=== PATIENT | female | born 1940 ===

== ENCOUNTER 2018-09-22 17:00 | Inpatient (IN) | payer OTHER ==
[2018-09-22] MEDS ORDERED: IOHEXOL 300 mgI/ML (OMNIPAQUE) 150 ML BTL IV ONE (17:43)
[2018-09-22] MEDS ORDERED: ONDANSETRON DISINTEGRATING 4 MG TAB PO PRN (17:54)
[2018-09-22] MEDS ORDERED: ACETAMINOPHEN 325 MG TAB PO PRN (17:54)
[2018-09-22] MEDS ORDERED: ONDANSETRON 4 MG/2 ML VIAL IVP PRN (17:54)
--- NOTE | 2018-09-22 18:34 | PDGENHP ---
Addendum entered and electronically signed by Brenda Adam NP 09/22/18 19:52 : I spoke with MICHAEL Jacobson for Dr. Doty re: face CT results. He and Dr. Doty were planning on evaluating the pt tomorrow anyway and review the results of the face CT however he was appreciative of the phone call tonight. Original Note: <Brenda Adam - Last Filed: 09/22/18 19:39> History and Physical - Chief Complaint Right periorbital cellulitis - History of Present Illness HPI: 78 y/o female with history of breast cancer and currently on chemotherapy presenting as a direct admit from her ENT, Dr. Doty's, office with right sided periorbital cellulitis. Beginning in December 2017, she had a sinus CT with opacification of the right maxillary sinus and right ethmoid - she was treated with 30 days of clindamycin to which there was an improvement and her dentist felt her dental evaluation a few months afterwards was negative. Repeat imaging June 2018 revealed opacification of the right maxillary sinus and the right ethmoids persisted. August 2018, she went to the OR and had a right-sided anterior and posterior ethmoidectomy and middle meatal antrostomy. Pathology showed acute and chronic inflammation. She was started on doxycycline and gentamicin rinses. A week after, she presented to the office with continuation of her purulent right ostiomeatal complex. She continued her gentamicin rinses and added in budesonide rinses. Last week, the complex was cultured and it showed streptococcus intermedius and was started on cefdinir last Saturday. Since then, she developed swelling around her right eye. Today in the ENT office, they performed a nasal endoscopy with purulence coming from the complex. This is my first encounter with the pt who is pleasant, cooperative and in no apparent distress. She denies any vision changes or loss of acuity, endorses a mild headache and inability to widen her right eye. Pain is 2-3/10. Pupils constrict to light appropriately, moderate edema and erythema surrounding eye with edema to upper and lower eyelid. Endorses tasting a "nasty taste" in her mouth from the drainage. Denies chest pains, palpitations, shortness of breath , fevers, or chills. She is being admitted for IV antibiotics and monitoring. Past Medical History 1. Breast cancer (1985, 2001) 2. 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 Hyperlipidemia 4. Hypertension Past Surgical History 1. Double mastectomy Social 1. , lives in [place] 2. Denies tobacco or illicit drug use. Drinks one glass of wine every day. History Information - Allergies/Home Medication List Allergies/Adverse Reactions: Sulfa (Sulfonamide Antibiotics) Allergy (Verified 09/22/18 17:12) I have personally reviewed and updated: family history, medical history, social history, surgical history Past Medical History: See HPI list - Surgical History Additional surgical history: See HPI list - Family History Positive for: non-pertinent - Social History Smoking Status: Never smoked Alcohol Use: Occasionally Drug Use: None Review of Systems Review of Systems: ROS: 10pt was reviewed & negative except for what was stated in HPI & below Physical Exam Physical Exam: Today's lab data is pending. Case discussed with admitting physician, Dr. Natalio Bar. Temp Pulse Resp BP Pulse Ox 36.7 C 95 16 133/83 H 94 09/22/18 17:42 09/22/18 17:42 09/22/18 17:42 09/22/18 17:42 09/22/18 17:42 Constitutional: no apparent distress, appears nourished, not in pain Eyes: PERRL, anicteric sclera, EOMI, other (see HPI) Ears, Nose, Mouth, Throat: moist mucous membranes, hearing normal, ears appear normal, no oral mucosal ulcers Cardiovascular: regular rate and rhythym, no murmur, rub, or gallop, No edema Peripheral Pulses: 2+: dorsalis-pedis (R) (Radial 2+), dorsalis-pedis (L) ( Radial 2+) Respiratory: no respiratory distress, no rales or rhonchi, clear to auscultation Gastrointestinal: normoactive bowel sounds, soft, non-tender abdomen, no palpable masses Genitourinary: no bladder fullness, no bladder tenderness Skin: warm, normal color, no rashes or abrasions, no fluctuance, no induration, No mottled Musculoskeletal: full muscle strength, no muscle tenderness, normal joint ROM, no joint effusions Neurologic: AAOx3, sensation intact bilaterally, CN II-XII Intact Psychiatric: interacting appropriately, not anxious, not encephalopathic, thought process linear Lymph, Heme, Immunologic: no cervical LAD, no supraclavicular LAD Lab Data & Imaging Review 09/22/18 19:00 09/22/18 19:00 Assessment & Plan Plan: 78 y/o female with history of metastatic breast cancer presenting with right- sided periorbital cellulitis, an approximately 9 month worth of progression to this stage. 1. Periorbital cellulitis: Dr. Av Doty, ENT requested admittance to hospital to receive IV abx. Face CT show no bony erosion to right maxillary, ethmoid and front sinus. It does reveal focal erosion surrounding anchor from right alveolar ridge dental implant with focal disruption of the floor of the right maxillary sinus which could contribute to the sinus disease. -ID consulted and aware. I spoke to Dr. Barboza who recommended pt receive Vancomycin and Zosyn. ID will evaluate pt in AM. -Oral surgery consult. I left a message for Dr. Ariana Ruby to consult while pt is in hospital. I am waiting for a response. -Cold compress -Pain management PO medications PRN 2. Headache: see above. 3. Metastatic breast cancer: Currently is on chemotherapy. Utilizes 2 medications - Ibrance, letrozole. She is on the 3rd day of the 21 day medication use. will bring in these medications from home for her to continue to take while in the hospital. 4. HTN 5. HLD 6. Anemia of chronic disease 7. Mnire's Disease Diet: Regular VTE ppx: SCDs, Lovenox subq Code: Full Dispo: Admit to inpatient <Natalio Bar - Last Filed: 09/22/18 22:16> History and Physical - History of Present Illness Review of Systems Review of Systems: Physical Exam Physical Exam: Temp Pulse Resp BP Pulse Ox 36.6 C 78 18 124/69 H 95 09/22/18 20:00 09/22/18 20:00 09/22/18 20:00 09/22/18 20:00 09/22/18 20:00 Lab Data & Imaging Review 09/22/18 19:00 09/22/18 19:00 WBC 5.21 10^3/uL (3.80-9.50) 09/22/18 19:00 RBC 3.33 10^6/uL (4.18-5.33) L 09/22/18 19:00 Hgb 12.4 g/dL (12.6-16.3) L 09/22/18 19:00 Hct 36.6 % (38.0-47.0) L 09/22/18 19:00 MCV 109.9 fL (81.5-99.8) H 09/22/18 19:00 MCH 37.2 pg (27.9-34.1) H 09/22/18 19:00 MCHC 33.9 g/dL (32.4-36.7) 09/22/18 19:00 RDW 14.6 % (11.5-15.2) 09/22/18 19:00 Plt Count 194 10^3/uL (150-400) 09/22/18 19:00 MPV 9.3 fL (8.7-11.7) 09/22/18 19:00 Neut % (Auto) 47.9 % (39.3-74.2) 09/22/18 19:00 Lymph % (Auto) 40.7 % (15.0-45.0) 09/22/18 19:00 [place] % (Auto) 9.8 % (4.5-13.0) 09/22/18 19:00 Eos % (Auto) 0.8 % (0.6-7.6) 09/22/18 19:00 Baso % (Auto) 0.4 % (0.3-1.7) 09/22/18 19:00 Nucleat RBC Rel Count 0.0 % (0.0-0.2) 09/22/18 19:00 Absolute Neuts (auto) 2.50 10^3/uL (1.70-6.50) 09/22/18 19:00 Absolute Lymphs (auto) 2.12 10^3/uL (1.00-3.00) 09/22/18 19:00 Absolute Monos (auto) 0.51 10^3/uL (0.30-0.80) 09/22/18 19:00 Absolute Eos (auto) 0.04 10^3/uL (0.03-0.40) 09/22/18 19:00 Absolute Basos (auto) 0.02 10^3/uL (0.02-0.10) 09/22/18 19:00 Absolute Nucleated RBC 0.00 10^3/uL (0-0.01) 09/22/18 19:00 Immature Gran % 0.4 % (0.0-1.1) 09/22/18 19:00 Immature Gran # 0.02 10^3/uL (0.00-0.10) 09/22/18 19:00 PT 12.9 SEC (12.0-15.0) 09/22/18 19:00 INR 0.95 (0.83-1.16) 09/22/18 19:00 Sodium 138 mEq/L (135-145) 09/22/18 19:00 Potassium 3.9 mEq/L (3.5-5.2) 09/22/18 19:00 Chloride 107 mEq/L (97-110) 09/22/18 19:00 Carbon Dioxide 24 mEq/l (22-31) 09/22/18 19:00 Anion Gap 7 mEq/L (6-14) 09/22/18 19:00 BUN 19 mg/dL (7-23) 09/22/18 19:00 Creatinine 0.8 mg/dL (0.6-1.0) 09/22/18 19:00 Estimated GFR > 60 09/22/18 19:00 Glucose 99 mg/dL (70-100) 09/22/18 19:00 Calcium 8.9 mg/dL (8.5-10.4) 09/22/18 19:00 Total Bilirubin 0.3 mg/dL (0.1-1.4) 09/22/18 19:00 AST 36 IU/L (14-46) 09/22/18 19:00 ALT 31 IU/L (9-52) 09/22/18 19:00 Alkaline Phosphatase 132 IU/L (38-126) H 09/22/18 19:00 Total Protein 7.1 g/dL (6.3-8.2) 09/22/18 19:00 Albumin 3.8 g/dL (3.5-5.0) 09/22/18 19:00 Assessment & Plan Assessment: Orbital cellulitis (Acute) Plan: Patient seen and evaluated independently and plan reviewed with LUCIE Adam. Agree with her assessment and plan as outlined above. See separate documentation for further details.
[2018-09-22 19:15] LABS: PLATELET COUNT 194 10^3/uL (150-400)
--- NOTE | 2018-09-22 19:32 | PDMN ---
Medical Necessity Medical necessity: [facility] M70 Cellulitis: 78 yo w/ periorbital cellulitis in setting of breast ca currently on chemo, direct admit for IV antibx. ID and oral surgery consulted. Meets [facility] IP criteria for cellulitis w/ orbital infection w/ high risk comorbid condition.
[2018-09-22 19:33] LABS: INR 0.95 (0.83-1.16); PROTIME(PATIENT) 12.9 SEC (12.0-15.0)
[2018-09-22] MEDS: PIPERACILLIN/TAZO 4.5 GM/DEX 100 ML IV SCH (20:16)
[2018-09-22] MEDS: VANCOMYCIN 750 MG in D5W 150 ML IV SCH (22:16)
--- NOTE | 2018-09-22 22:21 | HOSPPROG ---
Hospitalist Progress Note Assessment/Plan: 78 y/o female with history of metastatic breast cancer presenting with right- sided periorbital cellulitis # periorbital cellulitis: patient sent as a direct admit from ENT, reviewed care plan with them. Patient with hx of breast cancer and immune suppression and high risk for orbital involvement, facial CT without e/o bony erosion or orbital involvement. Reviewed care plan with ID, patient started on vanc/zosyn per their recommendations. ENT to follow # sinus disease: chronic sinus infection and evidence of erosion from dental implant to floor of maxillary sinus, [facility] surgery has been consulted and plans to evaluate patient in am # metastatic breast cancer: currently on ibrance and letrozole # chronic issues: HTN, HLD, anemia # IP status Patient new to my care. Old records reviewed and summarized as above. Care plan reviewed with ENT and ID as well as LUCIE Adam, please see her H&P for further details. Objective: Vital Signs Temp Pulse Resp BP Pulse Ox 36.6 C 78 18 124/69 H 95 09/22/18 20:00 09/22/18 20:00 09/22/18 20:00 09/22/18 20:00 09/22/18 20:00 Laboratory Results 09/22/18 19:00 09/22/18 19:00 PT 12.9 SEC (12.0-15.0) 09/22/18 19:00 INR 0.95 (0.83-1.16) 09/22/18 19:00 ICD10 Worksheet Patient Problems: Problems Problem Status Onset Orbital cellulitis Acute
[2018-09-23] MEDS: PIPERACILLIN/TAZO 4.5 GM/DEX 100 ML IV SCH ×3 (02:14→13:05)
[2018-09-23 05:26] LABS: PLATELET COUNT 157 10^3/uL (150-400)
--- NOTE | 2018-09-23 08:25 | SOAPPROG ---
SOAP Progress Note Assessment/Plan: Assessment: Right periorbital cellulitis and sinusitis. Pt with improved right eye swelling and discomfort. Vision improved. EOM intact Pt with likely dental implant source to her ongoing sinusitis. Plan: ID to see pt today. Page has been put out to Oral surgeon, waiting to hear back. Pt will need to see oral surgery for evaluation of her right upper dental implant, as this is possibly the source to her sinus infection. Will start Afrin nasal spray in right nares today to keep antrostomy as open and draining as possible. Discussed this plan with pt and answered questions 09/23/18 08:20 09/23/18 08:27 Subjective: Pt reports improved eye symptoms. Less swelling and discomfort. Objective: Vital Signs Temp Pulse Resp BP Pulse Ox 36.6 C 74 18 133/72 H 94 09/23/18 07:50 09/23/18 07:50 09/23/18 07:50 09/23/18 07:50 09/23/18 07:50 Laboratory Results 09/23/18 05:11 09/23/18 05:11 09/22/18 09/23/18 09/24/18 05:59 05:59 05:59 Intake Total 600 Output Total 300 Balance 300 PT 12.9 SEC (12.0-15.0) 09/22/18 19:00 INR 0.95 (0.83-1.16) 09/22/18 19:00 Pt sitting in bed and eating breakfast comfortably. Decreased swelling and erythema to right eye. EOMs are intact. - Pending Discharge Pending Discharge Within 24 Hours: No Pending Discharge Within 48 Hours: Yes Pending Discharge Date: 09/25/18 Pending Discharge Time: 11:00 ICD10 Worksheet Patient Problems: Problems Problem Status Onset Orbital cellulitis Acute
[2018-09-23] MEDS ORDERED: OXYMETAZOLINE 30 ML NASAL SPRAY NS SCH (09:00)
[2018-09-23] MEDS ORDERED: OXYMETAZOLINE 30 ML NASAL SPRAY EACHNARE SCH (09:00)
[2018-09-23] MEDS ORDERED: ENOXAPARIN 40 MG/0.4 ML SYR SC SCH (09:00)
[2018-09-23] MEDS: VANCOMYCIN 750 MG in D5W 150 ML IV SCH (09:25)
--- NOTE | 2018-09-23 09:36 | PDCONSULT ---
Supervisor [employer] Note: OMFS Consultation: HPI: 78 yo female with metastatic breast cancer reports to [facility] regarding right periorbital cellulitis. Reports having tooth problems upper right for some time and seeing the dentist recently without treatment due to treatment of Xgeva. Patient understanding that tooth likely needs removal. Reported right midface swelling starting yesterday and being unable to open right eye. MD Edgar Balderas, [place] - Rx Xgeva - qmonthly infusion - Scheduled Oct 01 for next infusion. Medical clearance will be sent to Dr Ramsey regarding holding Xgeva until late October 2018.
--- NOTE | 2018-09-23 09:38 | PDCONSULT ---
School Transportation Director Note: OMFS Consultation: HPI: 78 yo female with metastatic breast cancer reports to [facility] regarding right periorbital cellulitis. Reports having tooth problems upper right for some time and seeing the dentist recently without treatment due to treatment of Xgeva. Patient understanding that tooth likely needs removal. Reported right midface swelling starting yesterday and being unable to open right eye. Edema of right face decreased since yesterday per patient. MD Edgar Balderas, [place] - Rx Xgeva - qmonthly infusion - Scheduled Oct 01 for next infusion. Medical clearance will be sent to Dr Ramsey regarding holding Xgeva until late October 2018. Labs: Laboratory Results 09/23/18 05:11 09/23/18 05:11 09/23/18 09/23/18 05:11 05:11 WBC 3.25 10^3/uL L 10^3/uL (3.80-9.50) RBC 2.81 10^6/uL L 10^6/uL (4.18-5.33) Hgb 10.2 g/dL L g/dL (12.6-16.3) Hct 30.3 % L % (38.0-47.0) MCV 107.8 fL H fL (81.5-99.8) MCH 36.3 pg H pg (27.9-34.1) MCHC 33.7 g/dL g/dL (32.4-36.7) RDW 14.7 % % (11.5-15.2) Plt Count 157 10^3/uL 10^3/uL (150-400) MPV 9.4 fL fL (8.7-11.7) Neut % (Auto) 29.6 % L % (39.3-74.2) Lymph % (Auto) 55.4 % H % (15.0-45.0) [place] % (Auto) 12.0 % % (4.5-13.0) Eos % (Auto) 1.8 % % (0.6-7.6) Baso % (Auto) 0.9 % % (0.3-1.7) Nucleat RBC Rel Count 0.0 % % (0.0-0.2) Absolute Neuts (auto) 0.96 10^3/uL L 10^3/uL (1.70-6.50) Absolute Lymphs (auto) 1.80 10^3/uL 10^3/uL (1.00-3.00) Absolute Monos (auto) 0.39 10^3/uL 10^3/uL (0.30-0.80) Absolute Eos (auto) 0.06 10^3/uL 10^3/uL (0.03-0.40) Absolute Basos (auto) 0.03 10^3/uL 10^3/uL (0.02-0.10) Absolute Nucleated RBC 0.00 10^3/uL 10^3/uL (0-0.01) Immature Gran % 0.3 % % (0.0-1.1) Immature Gran # 0.01 10^3/uL 10^3/uL (0.00-0.10) RBC/WBC/PLT Morphology TNP Platelet Estimate TNP Sodium 138 mEq/L mEq/L (135-145) Potassium 3.8 mEq/L mEq/L (3.5-5.2) Chloride 110 mEq/L mEq/L (97-110) Carbon Dioxide 23 mEq/l mEq/l (22-31) Anion Gap 5 mEq/L L mEq/L (6-14) BUN 13 mg/dL mg/dL (7-23) Creatinine 0.8 mg/dL mg/dL (0.6-1.0) Estimated GFR > 60 Glucose 92 mg/dL mg/dL (70-100) Calcium 8.3 mg/dL L mg/dL (8.5-10.4) Total Bilirubin 0.5 mg/dL mg/dL (0.1-1.4) AST 23 IU/L IU/L (14-46) ALT 23 IU/L IU/L (9-52) Alkaline Phosphatase 92 IU/L IU/L (38-126) Total Protein 5.8 g/dL L g/dL (6.3-8.2) Albumin 2.9 g/dL L g/dL (3.5-5.0) Medical History 1. Metastatic breast cancer 2. HLD 3. HTN Allergies: Allergy/AdvReac Type Severity Reaction Status Date / Time Sulfa (Sulfonamide Allergy Intermediate Itching Verified 09/22/18 22:59 Antibiotics) Examination: General: AAOx3, pleasant, cooperative Head: Right midfacial edema with mild right periorbital edema w/o tenderness to palpation. Oral: #3 edema of buccal vestibule with tenderness. Missing dentition upper left. Fair [place]. CT Face: #3 with abscess palatal root and fluid level of right maxillary sinus, no direct communication between apices and sinus. Right midfacial edema. A: Acute abscess tooth #3, fractured, non-restorable with right buccal space abscess P: Patient to follow up at [facility] this week for extraction tooth #3. Recommend PO antibiotics Augmentin DS x10 days. Will contact Dr Ramsey regarding infusion hold. Ariana Ruby DDS sound system installer [phone]
--- NOTE | 2018-09-23 11:55 | ASMTCASEMG ---
Living Arrangements What is your living Answers: With Spouse arrangement? Who do you live with? Type Of Residence What kind of residence do Answers: House you live in? Discharge Plan Comments Coordination Status Comments Notes: Patient is a 78yo female with hx of breast cancer and currently on chemotherapy who is being admitted for right sided periorbital cellulitis and IV ABX. No therapies ordered at this time. D/C plan TBD. CM will follow. Date Signed: 09/23/2018 11:54 AM Electronically Signed By:Hawa Merchant LCSW
--- NOTE | 2018-09-23 12:03 | GCON ---
[f rep st] CONSULTATION INFECTIOUS DISEASE CONSULTATION DATE OF CONSULTATION: 09/23/2018 REFERRING PHYSICIAN: Natalio Bar MD REASON FOR CONSULTATION: Periorbital cellulitis. HISTORY OF PRESENT ILLNESS: Patient is a 78-year-old female with a past medical history of metastati c breast cancer on chronic therapy with Ibrance, whom I am asked to see in consultation for right-franco ed periorbital cellulitis in conjunction with sinusitis. Patient first developed problems in December of last year with right-sided maxillary and ethmoid sinusitis. This was associated with some periapical lucency of a maxillary tooth on the right side. Purulent drainage was noted from the ostiomeatal co mplex at that time, and she was treated with 30 days of clindamycin with good clinical response. Sub sequent exams revealed clearing of purulent drainage. Dental evaluation was performed with opinion t hat tooth did not require extraction. In April, patient had upper respiratory tract infection tr eated with azithromycin, and ENT evaluation at that time was negative for ongoing sinus drainage. In June, patient had repeat CT scan of the sinuses, which showed persistent opacification of the ri ght maxillary and ethmoid sinus. Ultimately, in August, she was taken to the operating room where s he had a right-sided anterior and posterior ethmoidectomy as well as maxillary sinus surgery. Purule nce with thick mucoid change was noted. The patient had cultures obtained at that point in time, whi ch showed prevotella, Staphylococcus epidermidis, eikenella, and viridans Streptococcus group. Susce ptibility profile of the Staphylococcus epidermidis is reviewed. She was subsequently treated with d oxycycline, budesonide rinse, and gentamicin rinse for approximately 1 month in total. More recently , purulent drainage was cultured, which showed growth of Streptococcus intermedius. She was treated with cefdinir for this finding. Last Saturday, the patient notes new onset of right-sided eye swelling with erythema, warmth, and tenderness overlying the skin. She does not have any yuli eye tendernes s. There was no associated fever or chills. She is currently taking her Ibrance. She does not reca ll any episodes of neutropenia associated with this medication previously. She was seen by ENT yeste rday and admitted for periorbital cellulitis. CT scan was performed, which showed findings compatibl e with periorbital cellulitis including complete opacification of the right maxillary and ethmoid sin uses. There were no erosive changes noted. Nasal endoscopy yesterday did not show any changes to meyer ggest mucormycosis. There was concern about focal erosion around a dental implant along the right al veolar ridge adjacent to the maxillary sinus. The patient was started empirically on vancomycin and Zosyn and notes significant decrease in symptoms today. She is able to open her eye without difficul ty and notes redness has largely resolved. She has not experienced nausea, vomiting, or diarrhea. G iven the above findings, infectious disease consultation is now requested for assistance in her ongoi ng management. PAST MEDICAL HISTORY: Metastatic breast cancer, chronic sinusitis as outlined above, neuropathy asso ciated with chemotherapy. PAST SURGICAL HISTORY: Bilateral mastectomy, sinus surgery as outlined above. CURRENT MEDICATIONS: Vancomycin 750 mg IV q.12 hours, Zosyn 4.5 g IV q.6 hours, Afrin nasal spray b. i.d., Lovenox 40 mg subcu daily. ALLERGIES: Sulfonamides associated with pruritus many years ago. SOCIAL HISTORY: Patient does not smoke. She drinks 1 glass of wine daily. No recent travel. There are pet cats at home. FAMILY HISTORY: Coronary artery disease. REVIEW OF SYSTEMS: Outside that noted in the HPI, remainder of a 10-system review is unremarkable. She has not had any pain associated with her right tooth. PHYSICAL EXAM: VITAL SIGNS: Temperature 36.6, heart rate 74, respiratory rate 18, blood pressure 13 3/72, oxygen saturation 94% on room air. GENERAL: Patient is well nourished, well developed, in no acute distress. She appears nontoxic. HEENT: The right periorbital region has mild edema, but the eye is fully open. There is resolved erythema in a periorbital distribution. The extraocular muscle s are intact. There is no tenderness over the frontal, maxillary, or periorbital region. There is n o conjunctival injection or drainage. There is no proptosis. Nasal exam shows no purulent drainage or eschar. Oropharyngeal exam shows no eschar in the palate or posterior pharynx. Mucous membranes are moist. NECK: Supple without palpable lymphadenopathy or thyromegaly. CHEST: Clear to ausculta tion bilaterally without adventitious sounds. Respiratory effort is normal. CARDIOVASCULAR: Regula r rate and rhythm without murmurs, gallops, or rubs. ABDOMEN: Soft, nontender, nondistended. There is no palpable organomegaly. Bowel sounds are present. MUSCULOSKELETAL: No cyanosis, clubbing, or edema. SKIN: No stigmata of endocarditis. The skin is warm and dry to touch. NEUROLOGIC: Patien t is alert and interacts appropriately with examiner. Cranial nerves 2-12 are grossly intact. Sensa tion is grossly intact. Muscle tone and bulk are normal. LYMPHATICS: No cervical or supraclavicula r nodes. LABORATORY DATA: White blood cell count 3.3, hematocrit 30.3, platelets 157, neutrophils 30%, lympho cytes 55%, absolute neutrophil count 960. Serum creatinine 0.8, bilirubin 0.5, AST 23, ALT 23, alkal ine phosphatase 92, albumin 2.9. Cultures from 09/15/2018 showed growth of Streptococcus intermedius . CT scan of the face as outlined above, which was reviewed and interpreted by me with Radiology deng bradford. IMPRESSION: Right-sided periorbital cellulitis in conjunction with right maxillary and ethmoid sinus itis, likely of odontogenic etiology: The patient has shown marked clinical improvement with vancomy samuel and Zosyn antibiotic therapy. She has been seen by Oral Surgery with plans for dental extraction as an outpatient later this week (complicated by patient's receipt of Xgeva). I have reviewed clini peter findings with her treating oncologist with plans to hold Ibrance. We will plan repeat CBC on Indira rsday to ensure neutrophil count remains stable or is improved. She has not had neutropenia previous ly. We will check serum quantitative immunoglobulins as well, as this could be additional contributo r to risk of sinusitis. Clinical findings and plan also reviewed with Dr. Bains, who plans to perform repeat nasal endoscop y later this afternoon for additional irrigation. Given the rapid clinical improvement, I think can be transitioned to oral Augmentin 875 mg twice daily. This will be done in conjunction with outpatie nt followup. I have asked lab to perform susceptibility on previous Streptococcus intermedius isolat e to ensure penicillin susceptible. RECOMMENDATIONS: 1. Augmentin 875 mg orally twice daily x14 days (this may be extended as outpatient given chronicity of symptoms). 2. Agree with plans for dental extraction as focal nidus will require removal if contributing to sin usitis and periorbital cellulitis. 3. Will hold Ibrance until she has clinically improved and can follow up with her oncologist. 4. Check serum quantitative immunoglobulins. 5. Warning signs of worsening infection discussed with patient today with need to notify me for any of these. 6. Will arrange for followup in my office next week for ongoing infectious disease care. Thank you for this consultation. We will continue to follow the patient with you. /[id number]/MODL
--- NOTE | 2018-09-23 13:05 | SOAPPROG ---
SOAP Progress Note Assessment/Plan: Assessment: Right periorbital cellulitis and sinusitis. Pt with improved right eye swelling and discomfort. Vision improved. EOM intact Pt with likely dental implant source to her ongoing sinusitis. Plan: ID Ok with pt going home today on PO Augmentin 875 bid x 30d. Given hand written script. Dr Ruby oral surgeon saw pt and plans to remove culprit tooth rogelio. Contact info for Dr Ruby was given to pt. Pt to f/u 09/30 as outpt with ID and with ENT in [place] office. Pt will continue nasal gentamicin washes. Discussed this plan with pt and answered questions 09/23/18 08:20 09/23/18 08:27 09/23/18 13:01 Subjective: Pt reports decreased right eye swelling and discomfort. Objective: Vital Signs Temp Pulse Resp BP Pulse Ox 36.6 C 74 18 133/72 H 94 09/23/18 07:50 09/23/18 07:50 09/23/18 07:50 09/23/18 07:50 09/23/18 07:50 Laboratory Results 09/23/18 05:11 09/23/18 05:11 09/22/18 09/23/18 09/24/18 05:59 05:59 05:59 Intake Total 600 Output Total 300 Balance 300 PT 12.9 SEC (12.0-15.0) 09/22/18 19:00 INR 0.95 (0.83-1.16) 09/22/18 19:00 VSS, alert, NAD. Pt resting comfortably in bed. - Pending Discharge Pending Discharge Within 24 Hours: Yes Pending Discharge Date: 09/24/18 Pending Discharge Time: 11:00 ICD10 Worksheet Patient Problems: Problems Problem Status Onset Orbital cellulitis Acute
--- NOTE | 2018-09-23 15:21 | PDDCSUM ---
Discharge Summary Discharge Summary: DISCHARGE DIAGNOSES: * Acute periorbital cellulitis * Acute sinusitis * Dental infection * Ongoing treatment with Ibrance for breast cancer, neutropenia at this time CONSULTANTS: Dr. Alcides Gomez PROCEDURES: Facial CT showing periorbital but no orbital cellulitis, no osteomyelitis, sinusitis is present HOSPITAL COURSE SUMMARY: This patient who is on Ibrance for breast cancer has had ongoing problems with dental infection and sinusitis over the past few months. At this point she comes in with acute right periorbital cellulitis, right-sided sinusitis maxillary, as well as evidence of dental infection. She was given antibiotics here and had dramatic rapid response and symptoms quite improved overnight, exam quite improved over night, no fever, no change in vision. She was assisted by Infectious Disease and ENT physicians here. At this point fusion felt quite stable and can be treated with oral antibiotics. It is recommended that she not use her Ibrance for the time being until her infection is cleared up entirely. She will be seeing add oral surgeon in the near future for dental extraction and will continue to follow up with her ENT surgeon. PENDING TEST RESULTS: None MEDICATION CHANGES: Augmentin 875 mg twice daily for 2 weeks She is to stop her Ibrance for the time being FOLLOW-UP PLAN: With Dr. Alcides Becker in [facility] in 1 week With her ENT surgeon next week With Dr. Ruby of oral surgery next week And with Dr. Ramsey her oncologist next week or the week after Greater than 35 minutes bedside and care coordination time today
[2018-09-23 15:50] VITALS: BP 130/71
== END 2018-09-23 16:39 | disposition home or self-care (01) | DRG 603 ==
LOC: F3E 17:00 → OBSVTOIN 17:56
PROVIDERS: ADMIT Internal Medicine; ATTEND Internal Medicine
DX: L03.213 Periorbital cellulitis (principal); J32.0 Chronic maxillary sinusitis; K04.7 Periapical abscess without sinus; C79.51 Secondary malignant neoplasm of bone; Z85.3 Personal history of malignant neoplasm of breast; E78.5 Hyperlipidemia, unspecified; I10 Essential (primary) hypertension; D53.9 Nutritional anemia, unspecified; H81.09 Meniere's disease, unspecified ear
CPT/HCPCS: J1650; J2543; J3370; Q9967